=== PATIENT | female | born 1990 | race African-American/Black ===

== ENCOUNTER → 2023-09-18 12:24 | Outpatient (CLI) | payer OTHER, SELFPAY ==
[2023-09-20 15:19] LABS: Candida species Positive (Negative); Gardnerella vaginalis Negative (Negative); Trichomoas vaginalis Negative (Negative)
== END ==
PROVIDERS: Visit Provider Physician Assistant Medical
DX: N89.8 Other specified noninflammatory disorders of vagina (principal)
CPT/HCPCS: 87480; 87510; 87660